=== PATIENT | female | born 1985 | race Caucasian/White ===

== ENCOUNTER → 2017-01-31 | Outpatient (CLI) | payer OTHER ==
--- NOTE | 2017-02-01 07:06 | US ---
EXAMINATION TYPE: US OB anatomy transabd DATE OF EXAM: 01/31/2017 4:16 PM COMPARISON: Prior ultrasound August 04, 2016 HISTORY: LGA TECHNIQUE: Transabdominal (TA) pelvic ultrasound EXAM MEASUREMENTS: GESTATIONAL AGE / DATING Physician Established: (35 weeks/3 days) EDC: 03/04/17 Dates by LMP: unknown Dates by First Scan: (35 weeks/3 days) EDC: 03/04/17 Dates by Current Scan for: (34 weeks/6 days) EDC: 03/08/17 SURVEY IUP: Single PLACENTA: Posterior fundal PREVIA: No previa JULIET: 12.2 cm Normal CERVICAL LENGTH (transabdominal: norm > 3.0cm): 4.7 cm BIOMETRY PRESENTATION: Breech LIE: Longitudinal BPD: 8.4 cm 33 weeks / 6 days HC: 31.8 cm 35 weeks / 5 days AC: 30.2 cm 34 weeks / 1 days FL: 7.0 cm 35 weeks / 5 days ESTIMATED WEIGHT IN GRAMS: 2501 grams ESTIMATED WEIGHT IN LBS/OZS: 5 lbs. 8 oz. WEIGHT PERCENTAGE BASED ON ESTABLISHED DATE: 29.1 % HC/AC: 1.05 normal FL/AC: 23.12 normal HEART RATE: 141 bpm RHYTHM: Normal ANATOMY SEEN (within normal limits): * Lateral Vent (< 1 cm) 0.7 cm Choroid Plexus (bilateral) Midline Falx Cavus Septi Pellucidi Four Chamber Heart Stomach Situs Nose / Lips Diaphragm Kidneys (bilateral) Bladder Three Vessel Cord Longitudinal Spine Transverse Spine ANATOMY NOT SEEN: due to age and position * Cisterna Magna (< 1.1 cm) * Nuchal Fold (< 0.6 cm) * Cerebellum (varies with age) Arms (bilateral) Legs (bilateral) Outflow tracts: LVOT/RVOT Cord Insert TECHNOLOGIST IMPRESSION: Single viable IUP 34wks/6days with SRIRAM of 03/08/17 Single live intrauterine gestation is redemonstrated. A breech presentation to fetus is currently not ed. Amniotic fluid index is within normal limits. biometry measurements are within normal limit s as detailed above. Detailed anatomical survey shows no suspicious abnormality during real-time scan ann-marie but is suboptimal due to advanced age and positioning with several structures not identifi ed as detailed above. IMPRESSION: As above
== END | disposition home or self-care (01) ==
LOC: RADUSWWP 15:45
PROVIDERS: ATTEND Obstetrics & Gynecology
DX: O32.1XX0 Maternal care for breech presentation, not applicable or unspecified (principal); Z3A.34 34 weeks gestation of pregnancy
CPT/HCPCS: 76811

== ENCOUNTER 2017-03-01 06:03 | Inpatient (IN) | payer OTHER ==
--- NOTE | 2017-02-28 10:44 | P.HPOB ---
History of Present Illness H&P Date: 02/28/17 Chief Complaint: Breech 31 year old presents for repeat low transverse and tubal ligation. Review of Systems All systems: negative Constitutional: Denies chills, Denies fever Eyes: denies blurred vision, denies pain Ears, nose, mouth and throat: Denies headache, Denies sore throat Cardiovascular: Denies chest pain, Denies shortness of breath Respiratory: Denies cough Gastrointestinal: Denies abdominal pain, Denies diarrhea, Denies nausea, Denies vomiting Genitourinary: Denies dysuria, Denies hematuria Musculoskeletal: Denies myalgias Integumentary: Denies pruritus, Denies rash Neurological: Denies numbness, Denies weakness Psychiatric: Denies anxiety, Denies depression Endocrine: Denies fatigue, Denies weight change Past Medical History Past Medical History: No Reported History Additional Past Medical History / Comment(s): Obstetric history: First was a C/S for breech. This is her second and she has had care with me since the first trimester. A+, abs neg, Rub Imm, RPR NR, Hep B neg. History of Any Multi-Drug Resistant Organisms: None Reported Past Surgical History: Tonsillectomy Additional Past Surgical History / Comment(s): rhinoplasty Past Anesthesia/Blood Transfusion Reactions: No Reported Reaction Past Psychological History: No Psychological Hx Reported Smoking Status: Never smoker Past Alcohol Use History: None Reported Past Drug Use History: None Reported - Past Family History Mother Family Medical History: Cancer Additional Family Medical History / Comment(s): ovarian cancer Medications and Allergies Home Medications Medication Instructions Recorded Confirmed Type Pnv with Ca,No.72/Iron/FA 1 each PO DAILY 01/13/15 01/18/15 History [ Plus Multivitamin Tab] Allergies Allergy/AdvReac Type Severity Reaction Status Date / Time No Known Allergies Allergy Verified 01/13/15 14:03 Exam Osteopathic Statement: *. No significant issues noted on an osteopathic structural exam other than those noted in the History and Physical/Consult. Heart: RRR Lungs: CTAB Abdomen: soft, nontender Extremeties: neg esau's Assessment and Plan (1) Breech presentation Status: Acute (2) Previous delivery, antepartum Status: Acute Plan: 1. prep for repeat low transverse with tubal ligation
[2017-03-01] MEDS ORDERED: ceFAZolin 2 GM in SODIUM CHLORIDE 0.9% 100 ML IVPB ONE (06:11)
[2017-03-01] MEDS ORDERED: CITRIC ACID-SODIUM CITRATE 15 ML CUP PO ONE (06:11)
[2017-03-01 06:17] VITALS: BMI 27.6
[2017-03-01 06:41] LABS: Basophils % (A) 0 %; CH 25.4; CHCM 31.9; Eosinophils # (A) 0.1 k/uL (0-0.7); Eosinophils % (A) 1 %; HCT 29.5 % (34.0-46.0); HDW 3.12; HGB 9.5 gm/dL (11.4-16.0); Hypochromasia Slight; Luc # (Auto) 0.15; Luc % (Auto) 2; Lymphocytes # (A) 2.4 k/uL (1.0-4.8); Lymphocytes % (A) 31 %; MCH 25.7 pg (25.0-35.0); MCHC 32.2 g/dL (31.0-37.0); MCV 79.7 fL (80.0-100.0); Mean Platelet Volume 7.6; Monocytes # (A) 0.4 k/uL (0-1.0); Monocytes % (A) 5 %; Neutrophils # (A) 4.7 k/uL (1.3-7.7); Neutrophils % (A) 61 %; RDW 14.1 % (11.5-15.5); WBC 7.7 k/uL (3.8-10.6); WBC (Perox) 7.94
[2017-03-01] MEDS: LACTATED RINGERS 1,000 ML IV SCH ×4 (07:17→20:09)
[2017-03-01] MEDS ORDERED: PHENYLEPHRINE-0.9% NACL SYG 1 MG/10 ML SYRINGE ONE (07:56)
[2017-03-01] MEDS ORDERED: OXYTOCIN 10 UNIT/ML 1 ML VIAL IM ONE (07:56)
[2017-03-01] MEDS ORDERED: MORPHINE SULFATE (PF) 0.3 MG/0.3 ML SYR ONE (07:56)
[2017-03-01] MEDS ORDERED: ONDANSETRON 4 MG/2 ML VIAL ONE (07:56)
[2017-03-01] MEDS ORDERED: NALBUPHINE 10 MG/ML AMPUL ONE (07:56)
[2017-03-01] MEDS ORDERED: KETOROLAC 30 MG/ML 1 ML VIAL ONE (07:56)
[2017-03-01] MEDS ORDERED: diphenhydrAMINE 50 MG/ML 1 ML VIAL IVP PRN ×3 (08:16→08:56)
[2017-03-01] MEDS ORDERED: ONDANSETRON 4 MG/2 ML VIAL IVP PRN ×2 (08:16→08:56)
[2017-03-01] MEDS ORDERED: MORPHINE SULFATE 4 MG/ML SYRINGE IVP PRN (08:16)
[2017-03-01] MEDS ORDERED: NALOXONE 0.4 MG/ML 1 ML VIAL IV PRN ×2 (08:16→08:56)
[2017-03-01] MEDS ORDERED: diphenhydrAMINE 50 MG CAP PO PRN (08:56)
[2017-03-01] MEDS ORDERED: diphenhydrAMINE 25 MG CAP PO PRN (08:56)
[2017-03-01] MEDS ORDERED: METOCLOPRAMIDE 5 MG/ML 2 ML VIAL IVP PRN (08:56)
[2017-03-01] MEDS ORDERED: ACETAMINOPHEN TAB 325 MG TAB PO PRN (08:56)
[2017-03-01] MEDS ORDERED: ZOLPIDEM 5 MG TAB PO PRN (08:56)
[2017-03-01] MEDS ORDERED: Acetaminophen-Codeine 300-30mg TAB PO PRN (08:56)
--- NOTE | 2017-03-01 09:06 | P.OP ---
Date of Procedure: 03/01/17 Preoperative Diagnosis: 1. at 39 weeks 4 days 2. previous 3. Breech 4. family planning Postoperative Diagnosis: 1. at 39 weeks 4 days 2. previous 3. Breech 4. family planning Procedure(s) Performed: Repeat low transverse with tubal ligation Anesthesia: spinal Surgeon: Shobha Marcano Estimated Blood Loss (ml): 600 IV fluids (ml): 800 Urine output (ml): 100 Pathology: other (placenta) Condition: stable Disposition: floor Operative Findings: Viable female, Apgars 9, 9, weight 7 lbs. 9 oz. Description of Procedure: Patient was taken to the operating room where spinal anesthesia was found be adequate. She was prepped and draped in normal sterile fashion in dorsal supine position with a leftward tilt. Pfannenstiel skin incision was made the scalpel and carried through to the underlying layer of fascia with the scalpel. Fascia was incised in midline and carried bilaterally with the Kulkarni scissors. The superior aspect of the fascial incision was grasped with Trevor clamps elevated and the underlying rectus muscles dissected off with the Kulkarni's. Attention was then turned to inferior aspect of same incision which in a similar fashion was grasped tented up and the underlying rectus muscles dissected off with the Kulkarni's. The rectus muscles were the midline and the peritoneum was identified tented up and entered sharply with the scalpel. The incision was extended superiorly and inferiorly with good visualization of the bladder. The bladder blade was inserted and the vesicouterine peritoneum was incised the Metzenbaums then carried bilaterally and bladder flap created digitally. A low transverse incision was then made on the uterus with the scalpel. This was carried bilaterally and digital manner. Infant's head delivered atraumatically, nose and mouth bulb suctioned, cord clamped and cut, infant handed off to waiting nurses. Apgars 9,9, weight 7 lbs. 9 oz. Placenta delivered manually, intact with three-vessel cord. The uterus is exteriorized and cleared of all clots and debris. The uterine incision was closed with 0 Vicryl in a running locked fashion. Second layer of the same sutures used in imbricating fashion to obtain excellent hemostasis. Bladder flap was then reapproximated using 2-0 Vicryl in a running fashion. Both ovaries and tubes appeared normal. The right fallopian tube was grasped with hemostat and a window was made in the mesosalpinx with the Bovie. The right fallopian tube was doubly ligated a section was removed. The pedicles were cauterized with the Bovie. The left fallopian tube was grasped with a hemostat a window was made in the mesosalpinx with the Bovie. The right fallopian tube was doubly ligated a section was removed. The pedicles were cauterized with the Bovie. The uterus was placed back into the abdomen. The peritoneum was reapproximated using 2-0 Vicryl in a running fashion. The muscles were reapproximated using 2-0 Vicryl in interrupted fashion. The fascia was reapproximated using 0 Vicryl in a running fashion. The subcutaneous tissues closed with 3-0 Vicryl running fashion. The skin was closed ivonne. Patient tolerated the procedure well, sponge and instrument counts were correct times 2 and she was taken to the recovery room in stable condition.
[2017-03-01] MEDS: KETOROLAC 30 MG/ML 1 ML VIAL IVP PRN ×2 (15:19→23:11)
[2017-03-01] MEDS: SENNOSIDES-DOCUSATE SODIUM 1 EACH TAB PO SCH (20:08)
[2017-03-01] MEDS: Acetaminophen-Codeine 300-30mg TAB PO PRN (20:09)
[2017-03-02] MEDS: Acetaminophen-Codeine 300-30mg TAB PO PRN ×3 (04:06→18:35)
[2017-03-02 07:09] LABS: Basophils % (A) 0 %; CH 24.7; CHCM 30.3; Eosinophils # (A) 0.1 k/uL (0-0.7); Eosinophils % (A) 1 %; HCT 26.9 % (34.0-46.0); HDW 3.06; HGB 8.4 gm/dL (11.4-16.0); Hypochromasia Marked; Luc % (Auto) 2; Lymphocytes # (A) 1.9 k/uL (1.0-4.8); Lymphocytes % (A) 18 %; MCH 25.7 pg (25.0-35.0); MCHC 31.4 g/dL (31.0-37.0); Mean Platelet Volume 8.1; Monocytes # (A) 0.6 k/uL (0-1.0); Monocytes % (A) 5 %; Neutrophils # (A) 8.1 k/uL (1.3-7.7); Neutrophils % (A) 74 %; RBC 3.28 m/uL (3.80-5.40); WBC 10.9 k/uL (3.8-10.6); WBC (Perox) 11.39
--- NOTE | 2017-03-02 08:01 | P.PNOBGPC ---
Subjective - Subjective Principal diagnosis: Status post repeat low transverse with tubal ligation postop day1 Interval history: Patient seen and examined. Pain well-controlled. Denies nausea, vomiting, fever, chills, chest pain, shortness of breath or chest pain. Tolerating regular diet and passing flatus. Patient reports: Reports appetite normal, Reports voiding normally, Reports pain well controlled, Reports ambulating normally : doing well Objective - Vital Signs Latest vital signs: Vital Signs Temp Pulse Resp BP Pulse Ox 03/02/17 06:00 14 98 03/02/17 04:00 97.7 F 67 14 99/64 98 03/02/17 02:00 14 98 03/02/17 00:00 98 F 69 16 107/54 99 03/01/17 20:00 98.2 F 67 16 109/54 100 03/01/17 18:00 14 98 03/01/17 16:00 98.1 F 73 16 122/66 100 03/01/17 13:00 16 03/01/17 12:00 97.7 F 65 18 117/58 99 03/01/17 11:16 17 03/01/17 10:45 66 17 119/63 03/01/17 10:15 57 L 17 111/75 03/01/17 09:45 52 L 16 108/57 98 03/01/17 09:30 60 16 104/58 98 03/01/17 09:16 17 98 03/01/17 09:15 62 17 109/58 99 03/01/17 09:00 73 16 117/58 98 03/01/17 08:45 97.6 F 66 17 117/59 100 Intake and Output 03/01/17 03/02/17 03/02/17 22:59 06:59 14:59 Output Total 1200 500 Balance -1200 -500 Output: Urine 1200 500 Uretheral (Mccall) 600 Other: # Voids 1 - Exam Lungs: bilateral: normal Chest: Normal S1, Normal S2 Extremities: Present: normal Abdomen: Present: normal appearance, soft. Absent: distention, tenderness Incision: Present: normal, dry, intact Uterus: Present: normal, firm - Labs Labs: Abnormal Lab Results - Last 24 Hours (Table) 03/02/17 Range/Units 06:54 WBC 10.9 H (3.8-10.6) k/uL RBC 3.28 L (3.80-5.40) m/uL Hgb 8.4 L (11.4-16.0) gm/dL Hct 26.9 L (34.0-46.0) % Neutrophils # 8.1 H (1.3-7.7) k/uL Assessment and Plan (1) Breech presentation Current Visit: No Status: Resolved Code(s): O32.1XX0 - MATERNAL CARE FOR BREECH PRESENTATION, UNSP SNOMED Code(s): 7960700 (2) Previous delivery, antepartum Current Visit: Yes Status: Resolved Code(s): O34.219 - MATERNAL CARE FOR UNSP TYPE SCAR FROM PREVIOUS DEL SNOMED Code(s): 754641878 (3) Status post repeat low transverse section Current Visit: Yes Status: Acute Code(s): Z98.891 - HISTORY OF UTERINE SCAR FROM PREVIOUS SURGERY SNOMED Code(s): 426743015 (4) Status post tubal ligation at time of delivery, current hosp Narrative/Plan: 1. Increase ambulation 2. Monitor pain control Current Visit: Yes Status: Acute Code(s): O80 - ENCOUNTER FOR FULL-TERM UNCOMPLICATED DELIVERY; Z30.2 - ENCOUNTER FOR STERILIZATION SNOMED Code(s): 802662876
[2017-03-02] MEDS: KETOROLAC 30 MG/ML 1 ML VIAL IVP PRN (08:07)
--- NOTE | 2017-03-02 08:31 | P.PN ---
Progress Note - Text 0740 Anesthesia POD 1. Patient is status post section under spinal anesthesia with intra-thecal preservative free morphine and 100 g. Minimal pruritus, good post-op analgesia, and no headache or other complication.
[2017-03-02] MEDS: SENNOSIDES-DOCUSATE SODIUM 1 EACH TAB PO SCH ×2 (13:04→22:51)
[2017-03-02] MEDS: IBUPROFEN 600 MG TAB PO PRN ×2 (15:40→22:50)
[2017-03-03] MEDS: Acetaminophen-Codeine 300-30mg TAB PO PRN ×2 (01:44→08:35)
[2017-03-03] MEDS: IBUPROFEN 600 MG TAB PO PRN ×2 (04:35→12:09)
[2017-03-03 09:01] VITALS: BP 119/61; PULSE 76; RESP 20; TEMP 98
[2017-03-03] MEDS: SENNOSIDES-DOCUSATE SODIUM 1 EACH TAB PO SCH (09:04)
--- NOTE | 2017-03-03 12:01 | P.DS ---
Providers Date of admission: 03/01/17 06:03 Expected date of discharge: 03/03/17 Attending physician: Shobha Marcano Primary care physician: Stated None Hospital Course: This is a 31-year-old female 2 para 1 at 39-4/7 weeks who presented for repeat section with tubal ligation. She underwent a repeat low transverse section with bilateral partial salpingectomy on 03/01/2017 and delivered a viable female with scores of 9 at 1 minute and 9 at 5 minutes and weight of 7 lbs. 9 oz. Her postoperative course has been uncomplicated. She is passing flatus and bowel movement. She is urinating without difficulty. Lochia is decreasing. She is bottle feeding. Vital signs are stable. Abdomen is soft with positive bowel sounds 4. Incision is clean dry and intact. [place] are intact. Extremities show negative Homans. Impression is status post repeat section postoperative day #2. Plan is to discharge home today. Maria De Jesus will be removed and Steri-Strips placed prior to discharge. She are he has prescriptions for Tylenol 3 and ibuprofen sent in to her pharmacy by Dr. Marcano. She is encouraged to continue taking her vitamin due to her anemia. She is advised to follow up with Dr. Marcano in approximately 1 week in the office and to follow up in 6 weeks for check. Is advised to call the office if she has any further questions or concerns prior to her appointment time. Procedures: Repeat low transverse section with bilateral partial salpingectomy on 03/01/2017 Patient Condition at Discharge: Stable Plan - Discharge Summary New Discharge Prescriptions: Acetaminophen-Codeine 300-30mg [Tylenol w/codeine #3] 2 each PO Q4HR PRN #30 tab PRN Reason: Moderate To Severe Pain Ibuprofen [Motrin] 600 mg PO Q6HR PRN #30 tab PRN Reason: Mild Pain Or Fever >= 100.5 Discharge Medication List Pnv with Ca,No.72/Iron/FA [ Plus Multivitamin Tab] 1 each PO DAILY 01/13 [History] Acetaminophen-Codeine 300-30mg [Tylenol w/codeine #3] 1 each PO Q4HR PRN #30 tab 01/20/15 [Rx] Acetaminophen-Codeine 300-30mg [Tylenol w/codeine #3] 2 each PO Q4HR PRN #30 tab 03/02/17 [Rx] Ibuprofen [Motrin] 600 mg PO Q6HR PRN #30 tab 03/02/17 [Rx] Follow up Appointment(s)/Referral(s): Shobha Marcano DO [Doctor of Osteopathic Medicine] - 1 Week Activity/Diet/Wound Care/Special Instructions: Instructions 1. Do not begin any exercise program for 3 weeks. 2. Do not resume sexual relations for 3 weeks or longer if uncomfortable. 3. You may take tub baths or showers at any time. 4. You may use tampons if desired after 3 weeks. 5. Keep the area of episiotomy (stitches) clean and dry. 6. If you are not nursing, wear a good fitting, supportive bra during the day and limit fluid intake for at least 1 week to prevent breast engorgement. 7. Call the office, [phone], within the next week to make appointment for your 6 week checkup if it has not already been made. 8. Report any of the following occurrences to the doctor promptly: a. Heavy, excessive bleeding b. Chills, fever c. Burning or frequency of urination d. Pain or redness and breasts if nursing e. Increasing pain or swelling in episiotomy (stitches). In addition to the above instructions, the following additional should be followed: 1. No heavy lifting or straining (exercising) until after 6 week checkup. 2. Keep abdominal incision clean and dry: You may wear a dressing if more comfortable. 3. Make office appointment for 10 days after going home or as instructed by her doctor. Discharge Disposition: HOME SELF-CARE
== END 2017-03-03 13:00 | disposition home or self-care (01) | DRG 766 ==
LOC: 4FBP 06:03
PROVIDERS: ADMIT Obstetrics & Gynecology; ATTEND Obstetrics & Gynecology
PROC: 0UB70ZZ Excision of Bilateral Fallopian Tubes, Open Approach (ICD-10-PCS; principal; 2017-03-01 08:00)
PROC: 10D00Z1 Extraction of Products of Conception, Low, Open Approach (ICD-10-PCS; principal; 2017-03-01 08:00)
DX: O34.211 Maternal care for low transverse scar from previous cesarean delivery (principal); D64.9 Anemia, unspecified; O99.02 Anemia complicating childbirth; Z37.0 Single live birth; Z3A.39 39 weeks gestation of pregnancy; Z30.2 Encounter for sterilization
CPT/HCPCS: 85025; 86850; 86900; 86901; 88302; 88307